=== PATIENT | female | born 1975 | race Caucasian/White ===

== ENCOUNTER 2018-04-28 22:56 | Emergency (ER) | payer MEDICAID ==
--- NOTE | 2018-04-28 23:06 | EDPHY ---
H & P Stated Complaint: dizziness and anxiety Time Seen by Provider: 04/28/18 22:59 HPI/ROS: CC: dizziness HPI: This 42 y/o female with PMH of breast cancer s/p bilateral mastectomy, breast reconstruction and currently on Lupron, presents to the ED with her for complaints of feeling lightheaded. She states she was seated on a sofa having a nonstressful conversation with a friend when she suddenly felt very lightheaded. She has a brief episode of blurred vision and the symptoms worsened when she turned her head. She then became very "jittery" and felt numbness and tingling in her hands and face. She also started to feel nauseated and vomited a small amount of food after she arrived in the ER. She denies recent illness, fever, chills, cough, chest pain, shortness of breath, abdominal pain or urinary symptoms. She got her 3rd injection of Lupron four days ago. She is also on many supplements as advised by her Naturopathic Oncologist including turmeric, black cohosh, and a probiotic. REVIEW OF SYSTEMS: Constitutional: No fever, no chills. Eyes: No discharge. ENT: No sore throat. Respiratory: No cough, no shortness of breath. Cardiac: No chest pain, no palpitations. Gastrointestinal: No abdominal pain. Genitourinary: No hematuria. Musculoskeletal: No back pain. Skin: No rashes. Neurological: No headache. Source: Patient, Family Exam Limitations: No limitations - Personal History LMP (Females 10-55): 1-7 Days Ago Current Tetanus/Diphtheria Vaccine: Unsure Current Tetanus Diphtheria and Acellular Pertussis (TDAP): Unsure - Medical/Surgical History PMH: PMH: Breast Cancer PSH: Bilateral mastectomy with right axillary node resection, breast reconstruction FH: Aunt with breast cancer, Father has CAD, Mother in good health NKDA Meds: Lupron, Turmeric, Blach Cohosh, probiotic Hx Asthma: No Hx Chronic Respiratory Disease: No Hx Diabetes: No Hx Cardiac Disease: No Hx Renal Disease: No Hx Cirrhosis: No Hx Alcoholism: No Hx HIV/AIDS: No Hx Splenectomy or Spleen Trauma: No Other PMH: breast cancer with breast reconstiction - Social History Smoking Status: Heavy smoker Additional Social History: . Denies tobacco products, ETOH, uses CBD oil - Physical Exam Exam: General Appearance: Alert, moderate distress, tearful. Eyes: Pupils equal and round no pallor or injection. ENT, Mouth: Mucous membranes are dry. Respiratory: There are no retractions, lungs are clear to auscultation. Cardiovascular: Regular rate and rhythm. Gastrointestinal: Abdomen is soft and nontender, no masses, bowel sounds normal. Neurological: Awake and alert, sensory and motor exams grossly normal. No focal deficits. Skin: Warm and dry, no rashes. Musculoskeletal: Neck is supple nontender. Extremities are symmetrical, full range of motion. Psychiatric: Patient is oriented X 3, there is no agitation. DIFFERENTIAL DIAGNOSIS: After history and physical exam differential diagnosis was considered for but not limited to: arrythmia, dehydration, electrolyte imbalance, infection, medication reaction, pulmonary embolism, thyroid disorder , anxiety Constitutional: Initial Vital Signs Temperature (C) 97.9 F 04/28/18 23:03 Heart Rate 132 H 04/28/18 23:03 Respiratory Rate 18 04/28/18 23:03 Blood Pressure 159/96 H 04/28/18 23:03 O2 Sat (%) 100 04/28/18 23:03 O2 Delivery Mode Room Air Allergies/Adverse Reactions: No Known Allergies Allergy (Unverified 04/28/18 23:06) Home Medications: Medication Instructions Recorded NK [No Known Home Meds] 04/28/18 Medical Decision Making - Diagnostics EKG Interpretation: Sinus tachycardia, HR 115, borderline t abnormalities anterior leads. ED Course/Re-evaluation: The patient was seen and examined. VS reviewed and significant for tachycardia. EKG showed sinus tach. Labs including a CBC, CMP, Mg, Lipase, Troponin, D-dimer, TSH/Free T4 were reassuring. 2 liters of IVF were administered and subsequent orthostatic VS were normal. Zofran x 2 relieved the patients nausea. The patient was feeling better although she still felt like her arms were "heavy". She did feel safe going home and will follow up with here PCP/oncologist. She was given a take-home pack of Zofran and Valium. She will return to the ER if any further problems or concerns. - Data Points Laboratory Results: Laboratory Results 04/28/18 23:30 Medications Given: Discontinued Medications Diazepam (Valium 5 Mg Prepack#4) 1 btl TAKEHOME EDNOW ONE Stop: 04/29/18 02:32 Last Admin: 04/29/18 02:44 Dose: 1 btl Sodium Chloride (Ns) 1,000 mls @ 0 mls/hr IV ONCE ONE; Wide Open PRN Reason: Protocol Stop: 04/28/18 23:48 Last Admin: 04/29/18 00:06 Dose: 1,000 mls Sodium Chloride (Ns) 1,000 mls @ 0 mls/hr IV ONCE ONE; Wide Open PRN Reason: Protocol Stop: 04/29/18 00:49 Last Admin: 04/29/18 00:50 Dose: 1,000 mls Ondansetron HCl (Zofran Odt) 4 mg PO EDNOW ONE Stop: 04/28/18 23:53 Last Admin: 04/28/18 23:30 Dose: 4 mg Ondansetron HCl (Zofran) 4 mg IVP EDNOW ONE Stop: 04/29/18 00:09 Last Admin: 04/29/18 00:09 Dose: 4 mg Ondansetron HCl (Zofran Odt 4 Mg Prepack#2) 1 btl TAKEHOME EDNOW ONE Stop: 04/29/18 02:32 Last Admin: 04/29/18 02:45 Dose: 1 btl Point of Care Test Results: Chemistry 04/28/18 04/28/18 23:50 23:48 POC Sodium 140 mEq/L mEq/L (135-145) POC Potassium 3.5 mEq/L mEq/L (3.3-5.0) POC Chloride 106.0 mEq/L mEq/L (97-110) POC Total CO2 23 mEq/L mEq/L (22-31) POC BUN 10 mg/dL mg/dL (7-23) POC Creatinine 0.9 mg/dL mg/dL (0.6-1.0) POC Glucose 117 mg/dL H mg/dL (70-100) POC Calcium 9.9 mg/dL mg/dL (8.5-10.4) POC Total Bilirubin 0.5 mg/dL mg/dL (0.1-1.4) POC AST 37 IU/L IU/L (14-46) POC ALT 19 IU/L IU/L (9-52) POC Alk Phosphatase 44 IU/L IU/L (38-126) POC Troponin I 0.00 ng/mL ng/mL (0.00-0.08) POC Total Protein 7.1 g/dL g/dL (6.3-8.2) POC Albumin 4.2 g/dL g/dL (3.5-5.0) Departure - Departure Disposition: Home, Routine, Self-Care Clinical Impression: Lightheadedness, Nausea & vomiting, Anxiety Condition: Good Instructions: Diazepam (By mouth), Ondansetron (By mouth), Acute Nausea and Vomiting (ED), Lightheadedness (ED), Anxiety (ED) Additional Instructions: Follow up with your Primary Care Provider/Oncologist within the next week regarding your symptoms this evening. Return to the ER if any further problems or concerns as discussed. Referrals: Patient,NotPresent [Primary Care Provider] - As per Instructions
[2018-04-28] MEDS ORDERED: ONDANSETRON 4 MG/2 ML VIAL ONE (23:15)
[2018-04-28] MEDS ORDERED: ONDANSETRON DISINTEGRATING 4 MG TAB ONE (23:27)
[2018-04-28] MEDS ORDERED: NS 1,000 ML IV ONE (23:47)
[2018-04-28] MEDS ORDERED: ONDANSETRON DISINTEGRATING 4 MG TAB PO ONE (23:52)
[2018-04-29] MEDS ORDERED: ONDANSETRON 4 MG/2 ML VIAL IVP ONE (00:08)
--- NOTE | 2018-04-29 00:38 | CPEKG ---
Heart Rate: 106 RR Interval: 566 P-R Interval: 160 QRSD Interval: 98 QT Interval: 356 QTC Interval: 473 P Clifton: 44 QRS Clifton: 8 T Wave Cl[place]: 17 EKG Severity - OTHERWISE NORMAL ECG - EKG Impression: SINUS TACHYCARDIA Electronically Signed By: Aleks Hassan 30-Apr-2018 16:52:51
[2018-04-29] MEDS ORDERED: NS 1,000 ML IV ONE (00:48)
[2018-04-29 00:51] LABS: PLATELET COUNT 292 10^3/uL (150-400)
[2018-04-29] MEDS ORDERED: DIAZEPAM 5 MG PREPACK#4 BTL TAKEHOME ONE (02:31)
[2018-04-29] MEDS ORDERED: ONDANSETRON 4MG PREPACK#2 BTL TAKEHOME ONE (02:31)
[2018-04-29 02:51] VITALS: BP 119/65
--- NOTE | 2018-05-01 12:04 | CPEKG ---
Heart Rate: 115 RR Interval: 522 P-R Interval: 160 QRSD Interval: 94 QT Interval: 320 QTC Interval: 443 P Beverly: 69 QRS Beverly: 27 T Wave Beverly: 34 EKG Severity - BORDERLINE ECG - EKG Impression: SINUS TACHYCARDIA EKG Impression: BORDERLINE T ABNORMALITIES, ANTERIOR LEADS Electronically Signed By: Aleks Hassan 01-May-2018 17:05:20
== END 2018-04-29 02:51 | disposition home or self-care (01) ==
LOC: CED 22:56
DX: R42 Dizziness and giddiness (principal); R11.2 Nausea with vomiting, unspecified; F41.9 Anxiety disorder, unspecified; F17.200 Nicotine dependence, unspecified, uncomplicated; E86.9 Volume depletion, unspecified; Z85.3 Personal history of malignant neoplasm of breast
CPT/HCPCS: 80053-PO; 84484-PO; 96374; J2405